=== PATIENT | male | born 1985 | race Caucasian/White ===

== ENCOUNTER → 2017-11-29 12:21 | Outpatient (CLI) | payer SELFPAY ==
--- NOTE | 2017-11-29 12:38 | XR_ITS ---
XR acute abdomen series COMPARISON: None HISTORY: Abdominal pain TECHNIQUE: Upright chest. Upright and supine abdomen FINDINGS: Frontal view of the chest shows no acute finding. Upright and supine views of the abdomen show nonspecific nonobstructive bowel gas pattern. There are few scattered air-fluid levels in the ascending colon nonspecific. There is a 12 mm bone island in right femoral neck with some mild flattening of the right femoral head. IMPRESSION: Scattered air-fluid levels in the right hemicolon nonspecific but may be seen with colitis
== END ==
PROVIDERS: PCP Nurse Practitioner Family; Visit Provider Family Medicine
DX: R10.9 Unspecified abdominal pain (principal)
CPT/HCPCS: 74021; Q9967

== ENCOUNTER 2022-10-07 23:57 | Emergency (ER) | payer OTHER, SELFPAY ==
[2022-10-07 23:58] VITALS: BP 161/107; PULSE 90; RESP 18; TEMP 36.9; O2SAT 100; BMI 25.0
--- NOTE | 2022-10-08 00:06 | CT_ITS ---
PROCEDURE INFORMATION: Exam: CT Abdomen And Pelvis With Contrast Exam date and time: 10/08/2022 1:27 AM Age: 37 years old Clinical indication: Abdominal pain; Generalized; Additional info: Abd pain TECHNIQUE: Imaging protocol: Computed tomography of the abdomen and pelvis with contrast. Radiation optimization: All CT scans at this facility use at least one of these dose optimization techniques: automated exposure control; mA and/or kV adjustment per patient size (includes targeted exams where dose is matched to clinical indication); or iterative reconstruction. Contrast material: ISOVUE; Contrast volume: 75 ml; Contrast route: IV; COMPARISON: [facility] XR acute abdomen series 11/29/2017 12:50 PM FINDINGS: Liver: Normal. No mass. Gallbladder and bile ducts: Normal. No calcified stones. No ductal dilation. Pancreas: Normal. No ductal dilation. Spleen: Normal. No splenomegaly. Adrenal glands: Normal. No mass. Kidneys and ureters: Normal. No hydronephrosis. Stomach and bowel: Constipation. No obstruction. No mucosal thickening. Appendix: No evidence of appendicitis. Intraperitoneal space: Unremarkable. No free air. No significant fluid collection. Vasculature: Unremarkable. No abdominal aortic aneurysm. Lymph nodes: Unremarkable. No enlarged lymph nodes. Urinary bladder: Unremarkable as visualized. Reproductive: Unremarkable as visualized. Bones/joints: Unremarkable. No acute fracture. Soft tissues: Unremarkable. IMPRESSION: No acute findings.
[2022-10-08 00:12] LABS: Microscopic, Urine URINE MICROSCOPIC (MICROSCOPIC)
[2022-10-08 00:15] LABS: Appearance,Urine CLEAR (Clear); Bilirubin,Urine Negative (Negative); Blood, Urine Negative (Negative); Color,Urine YELLOW (Yellow); Glucose,Urine (UA) Negative (Negative); Ketones,Urine Negative (Negative); Leukocyte Esterase,Urine Negative (Negative); Nitrate,Urine Negative (Negative); Protein,Urine Negative (Negative); Urobilinogen,Urine 0.2 EU/dl (0.2)
[2022-10-08 00:22] LABS: Squamous Epithelial Cell,Urine Occasional #/hpf (0-5); WBC,Urine Occasional #/hpf (0-3)
[2022-10-08 00:33] LABS: Basophils # 0.2 K/mm3 (0-0.2); Basophils % 1.5 % (0.1-2.0); Eosinophils # 0.6 K/mm3 (0.0-0.4); Eosinophils % 4.9 % (0.1-12.0); Hematocrit 47.5 % (42.0-52.0); Hemoglobin 16.6 g/dL (14.1-18.0); Lymphocytes # 4.4 K/mm3 (0.7-4.5); Mean Corpuscular HGB Conc 34.9 g/dL (31.8-35.4); Mean Corpuscular Hemoglobin 31.2 pg (27.0-31.2); Mean Corpuscular Volume 89.4 fl (80-94); Mean Platelet Volume 8.1 fl (7.4-10.4); Monocytes # 0.6 K/mm3 (0.1-1.0); Monocytes % 4.7 % (1.7-9.3); Neutrophils # 6.5 K/mm3 (1.8-7.8); Neutrophils % 52.9 % (37.0-80.0); Platelet Count 419 K/mm3 (142-424); Red Blood Count 5.31 M/mm3 (4.60-6.20); Red Cell Distribution Width 12.1 % (11.5-17.5); White Blood Count 12.2 K/mm3 (4.8-10.8)
[2022-10-08 00:37] LABS: Chloride 99 mmol/L (98-107); Potassium 3.6 mmoL/L (3.5-5.1); Sodium 141 mmol/L (136-145)
[2022-10-08 00:39] LABS: Amylase 86 U/L (30-110); Blood Urea Nitrogen 19 mg/dl (9-20); Creatinine Clearance Estimated 121 mL/min (50-200); Estimated Glomerular Filt Rate 96 ml/min (>60); GFR (African American) 116 ML/MIN (>60)
[2022-10-08 00:40] LABS: Alanine Aminotransferase 30 U/L (12-78); Albumin Level 5.3 g/dl (3.5-5.0); Albumin/Globulin Ratio 1.8 (1.1-1.8); Alkaline Phosphatase 109 U/L (38-126); Anion Gap 14.6 mEq/L (5-15); Aspartate Amino Transferase 39 U/L (17-59); Bilirubin,Total 0.9 mg/dl (0.2-1.3); Calcium 10.3 mg/dl (8.4-10.2); Carbon Dioxide 31 mmol/L (22.0-30.0); Glucose 94 mg/dl (74-100); Lipase 119 U/L (23-300); Total Protein,Serum 8.3 g/dl (6.3-8.2)
--- NOTE | 2022-10-08 00:46 | [facility].EDABDPAI ---
Discharge Plan Disposition Chief Complaint: Abdominal Pain Referrals Follow up/Referrals: Provider,Referral, MD [Primary Care Provider] - See instructions Clinical Impressions Clinical Impression: Abdominal pain, Constipation Instructions Patient Instructions: DI for Acute Abdominal Pain, DI for Constipation Discharge ED Provider: Justin Gómez Abdominal Pain HPI General Chief Complaint: Abdominal Pain Stated Complaint: abdominal pain; has pooped in a week Time Seen by Provider: 10/08/22 00:47 Mode of Arrival: Ambulatory Source of Information: Patient Limitations: No Limitations Description of Symptoms (Recalled from ER Triage Doc. by RN): pt c/o abd pain x 2 days pt hasn't have a bm in over a week History of Present Illness HPI narrative: has hx of ibs-c but has abd pain with no vomiting or bleeding which is different than usual MD complaint: abdominal pain Onset (ago): day(s) Consistency: intermittent Location: diffuse Severity: moderate Quality: cramping Associated symptoms: denies other symptoms Related Data Allergies Allergy/AdvReac Type Severity Reaction Status Date / Time No Known Allergies Allergy Unverified 11/14/17 14:10 PFSH PFS Social History Smoking Status: Current every day smoker alcohol intake: never current occupational status: employed Travel in the last 8 weeks: None ROS Obtained: Yes All systems reviewed & no additional complaints except as documented Physical Exam General General appearance: alert Head Head exam: normocephalic Eye Eye exam: Present PERRL and EOMI ENT ENT exam: Present mucous membranes moist Neck Neck exam: Present trachea midline Respiratory Respiratory exam: Present normal lung sounds bilaterally; Absent respiratory distress Cardiovascular Cardiovascular exam: Present regular rate; Absent systolic murmur Abdominal Exam Abdominal exam: Present soft, tenderness and hypoactive bowel sounds; Absent guarding, rebound, rigidity or ascites Abdominal tenderness: Present diffuse and moderate Extremities Exam Extremities exam: Present full ROM Neurological Exam Neurological exam: Present alert, oriented X3 and CN II-XII intact Psychiatric Psychiatric exam: Present normal affect Skin Skin exam: Absent rash Medical Decision Making Medical Records Medical records reviewed: Yes I reviewed the patient's medical records. Roly Inquiry Pt receiving controlled substance: No Vital Signs: 10/07/22 23:58 Temperature 98.4 F Temperature Source Oral Pulse Rate [Right] 90 Respiratory Rate 18 Blood Pressure [Right Arm] 161/107 H Blood Pressure Mean [Right Arm] 125 02 Sat by Pulse Oximetry 100 Lab Data Lab results reviewed: Yes I reviewed the patient's lab results. Lab Results 10/08/22 00:06: WBC 12.2 H, RBC 5.31, Hgb 16.6, Hct 47.5, MCV 89.4, MCH 31.2, MCHC 34.9, RDW 12.1, Plt Count 419, MPV 8.1, Neut % (Auto) 52.9, Lymph % (Auto) 36.0, Taylor % (Auto) 4.7, Eos % (Auto) 4.9, Baso % (Auto) 1.5, Neut # (Auto) 6.5, Lymph # (Auto) 4.4, Taylor # (Auto) 0.6, Eos # (Auto) 0.6 H, Baso # (Auto) 0.2 10/08/22 00:06: Sodium 141, Potassium 3.6, Chloride 99, Carbon Dioxide 31 H, Anion Gap 14.6, BUN 19, Creatinine 0.90, Estimated Creat Clear 121, Estimated GFR 96, Est GFR ( Amer) 116, Glucose 94, Calcium 10.3 H, Total Bilirubin 0.9, AST 39, ALT 30, Alkaline Phosphatase 109, Total Protein 8.3 H, Albumin 5.3 H, Globulin 3.0, Albumin/Globulin Ratio 1.8, Amylase 86, Lipase 119 10/08/22 00:06: ESR 1 10/08/22 00:06: C-Reactive Protein 2.3 10/08/22 00:06: Free T4 1.11 10/08/22 00:07: Urine Color Yellow, Urine Appearance Clear, Urine pH 7.0, Ur Specific [place] 1.020, Urine Protein Negative, Urine Glucose (UA) Negative, Urine Ketones Negative, Urine Blood Negative, Urine Nitrate Negative, Urine Bilirubin Negative, Urine Urobilinogen 0.2, Ur Leukocyte Esterase Negative, Urine RBC None, Urine WBC Occasional, Ur Squamous Epith Cells Occasional, Urine Bacteria None R
[2022-10-08 01:10] LABS: C-Reactive Protein 2.3 mg/L (0-4)
[2022-10-08 01:20] LABS: Erythrocyte Sedimentation Rate 1 mm/hr (0-15)
[2022-10-08 01:24] LABS: Free T4 (Free Thyroxine) 1.11 ng/dl (0.78-2.19)
[2022-10-08 01:36] VITALS: BP 146/78; PULSE 90; RESP 18; TEMP 36.9; O2SAT 100
[2022-10-08 01:38] LABS: Thyroid Stimulating Hormone 4.51 uIU/mL (0.465-4.68)
== END 2022-10-08 01:40 | disposition home or self-care (01) ==
LOC: ER 10-08 00:08
PROVIDERS: Emergency Provider Emergency Medicine
DX: K59.00 Constipation, unspecified (principal)
CPT/HCPCS: 74177; 80053; 81001; 82150; 83690; 84439; 84443; 85025; 85651; 86140; 96365; 96375; 99284; J2405; Q9967